=== PATIENT | female | born 1950 | race Caucasian/White ===

== ENCOUNTER 2018-08-20 00:39 | Outpatient (CLI) | payer MEDICARE, OTHER, SELFPAY ==
--- NOTE | 2018-08-20 11:30 | DI.MAMMO_ITS ---
SYMPTOM/DIAGNOSIS: SCREEN MAMMOGRAM: 08/20 Mammograms were interpreted according to the usual protocol including computer analysis with CAD system, tomosynthesis and C view imaging. The breasts are of moderate density with fairly symmetrical distribution of fibroglandular tissue. No dominant mass or clumped microcalcification is identified in either breast. The current examination is compared with previous examinations including Sep 2016 and there has been no gross interval change in appearance in comparison with the previous studies. CONCLUSION: No specific evidence of malignancy at this time. Routine screening examinations are suggested at yearly intervals in this age group according to the ACS/ACR guidelines. Category 1, breast density category B. MQSA ASSESSMENT OF FINDINGS: Negative. Category 1. Patient will receive a letter notifying them of these results. BI-RADS category B. There are scattered areas of fibroglandular density.
== END 2018-08-20 00:59 ==
PROVIDERS: PCP Family Medicine; Visit Provider Family Medicine
DX: Z12.31 Encounter for screening mammogram for malignant neoplasm of breast (principal)
CPT/HCPCS: 77063; 77067

== ENCOUNTER 2018-09-25 03:25 | Outpatient (CLI) | payer MEDICARE, OTHER, SELFPAY ==
[2018-09-25 13:34] LABS: Hemoglobin A1C 5.6 % (4.5-6.2)
[2018-09-25 15:00] LABS: ALT 19 U/L (12-78); AST 17 U/L (15-37); Albumin 3.8 g/dL (3.4-5.0); Alkaline Phosphatase 90 U/L (46-116); Anion Gap 5.9 mmol/L (3-11); BUN 19 mg/dL (7-18); Bilirubin, Total 0.4 mg/dL (0.2-1.0); CO2 31.1 mmol/L (21.0-32.0); CREATININE 1.18 mg/dL (0.55-1.02); Calcium 8.8 mg/dL (8.5-10.1); Chloride 101 mmol/L (98-107); Cholesterol 252 mg/dL (50-200); Estimated GFR 45.28 (mL/min/1.73m2); Glucose 98 mg/dL (70-100); HDL Cholesterol 53 mg/dL (40-60); LDL CHOLESTEROL 186 mg/dL (<100); Potassium 4.3 mmol/L (3.5-5.1); Sodium 138 mmol/L (136-145); Total Protein 6.8 g/dL (6.4-8.2); Triglyceride 147 mg/dL (30-150)
== END 2018-09-25 03:45 ==
PROVIDERS: PCP Family Medicine; Visit Provider Family Medicine
DX: R73.09 Other abnormal glucose (principal); I10 Essential (primary) hypertension; E78.5 Hyperlipidemia, unspecified
CPT/HCPCS: 36415; 80053; 80061; 83721; 83036

== ENCOUNTER 2019-01-21 10:30 | Outpatient (CLI) | payer MEDICARE, OTHER, SELFPAY ==
--- NOTE | 2019-01-21 10:19 | DI.RAD_ITS ---
SYMPTOMS/DIAGNOSIS: RT KNEE PAIN RIGHT KNEE: There are severe degenerative changes of the medial femoral tibial joint. There is sclerosis and mild spurring. There is varius angulation. Spurring is also seen at the tibial spines and femoral intracondylar notch as well as lateral femoral condyle and lateral tibial plateau. Milder degenerative changes are seen involving the patellofemoral joint. There is a question of posterior loose bodies. IMPRESSION: Severe degenerative changes of the medial femoral tibial joint. Question of joint space loose bodies.
== END 2019-01-21 10:50 ==
PROVIDERS: PCP Family Medicine; Referring Provider Family Medicine; Visit Provider Student in an Organized Health Care Education/Training Program
DX: M17.11 Unilateral primary osteoarthritis, right knee; I10 Essential (primary) hypertension; Z96.652 Presence of left artificial knee joint
CPT/HCPCS: 73562; 99214

== ENCOUNTER → 2019-01-24 11:28 | Outpatient (BNVA) | payer MEDICARE, OTHER, SELFPAY | PROVIDERS: PCP Family Medicine; Referring Provider Family Medicine; Visit Provider Orthopaedic Surgery | DX: I10 Essential (primary) hypertension (principal); M17.11 Unilateral primary osteoarthritis, right knee; Z96.652 Presence of left artificial knee joint ==

== ENCOUNTER 2019-01-24 12:38 | Outpatient (CLI) | payer MEDICARE, OTHER, SELFPAY ==
[2019-01-24 13:59] LABS: Abs Immature Grans 0.05 k/cumm (0.0-0.09); Absolute Basophil Count 0.02 k/cumm (0.0-0.2); Absolute Lymphocyte Count 2.29 k/cumm (1.2-3.4); Absolute Neutrophil Count 8.46 k/cumm (1.2-6.7); Basophils % 0.2; Eosinophils % 2.3; HCT 38.3 % (36.0-46.0); HGB 12.1 g/dL (12.0-15.5); Immature Grans % 0.4; Lymphocytes % 19.2; Mean Corp. HGB Concentration 31.6 g/dL (32.0-36.0); Mean Corpuscular Hemoglobin 27.1 pg (27.0-33.0); Mean Corpuscular Volume 85.7 fL (80-95); Mean Platelet Volume 10.4 fL (8.0-11.0); Neutrophils % 70.9; Platelet Count 335 x1000/uL (130-400); RBC 4.47 m/cumm (4.00-5.20); RBC Distribution Width 14.4 % (11.7-14.6); White Blood Cell Count 11.93 k/cumm (4.4-10.8)
[2019-01-24 14:01] LABS: Absolute Eosinophil Count 0.27 k/cumm (0.0-0.7); Absolute Monocyte Count 0.84 k/cumm (0.11-0.7)
== END 2019-01-24 12:58 ==
PROVIDERS: PCP Family Medicine; Visit Provider Orthopaedic Surgery
DX: M25.561 Pain in right knee (principal); M17.11 Unilateral primary osteoarthritis, right knee; Z01.818 Encounter for other preprocedural examination
CPT/HCPCS: 36415; 85025

== ENCOUNTER 2019-01-28 05:56 | Inpatient (IN) | payer MEDICARE, OTHER, SELFPAY ==
[2019-01-28] VITALS (13 sets, daily range): BP systolic 76–124; BP diastolic 51–75; PULSE 63–80; RESP 12–20; TEMP 36.2–36.9; O2SAT 96–98
[2019-01-28] MEDS: Lactated Ringers 1,000 ML 80 ML IV ×2 (07:01→09:59)
[2019-01-28] MEDS: Bupivacaine LIPOSOME/PF 133 MG/10 ML VIAL IJ (07:27)
[2019-01-28] MEDS: Bupivacaine 0.25% Pres-Free 10 ML VIAL (07:27)
[2019-01-28] MEDS: Tranexamic Acid 1,000 MG/10 ML VIAL 1000 MG (09:31)
[2019-01-28] MEDS: Hydrogen Peroxide 3% 480 ML BTL (09:59)
--- NOTE | 2019-01-28 11:04 | DI.RAD_ITS ---
SYMPTOMS/DIAGNOSIS: CHECK TOTAL KNEE COMPONENTS RIGHT KNEE: Two views. Comparison 01/21/19. The patient is now status post right total knee replacement. No evidence of hardware failure is seen. The soft tissues are unremarkable. IMPRESSION: Status post right TKR.
--- NOTE | 2019-01-28 13:56 | IN_ITS ---
Date of service: 01/28/19 Time of Service: 12:54 PT Notes Inpatient Physical Therapy Evaluation Date: 01/28/2019 Referring Doctor: Jus Boyle MD PT Orders: PT CONSULT: Mobilize postop right total knee. Get OOB ambulating in room this afternoon Precautions: Fall. Standard. Patient Profile/Admitting Diagnosis: Patient is a 68-year-old female status post right total knee arthroplasty due to persistent right knee pain from unilateral primary osteoarthritis. PMHX: Shingles (Resolved 10/16/17) Polyp of colon (Chronic) Panic attack (Resolved) Knee pain (Chronic) Increased body mass index (Chronic) Hyperlipidemia (Chronic) Essential hypertension (Chronic) Disorder characterized by back pain (Chronic) Depressive disorder (Chronic) Cervical spondylosis (Chronic 09/19/12) Cataract (Resolved 12/16/14) Surgical History: Colonoscopy - MAC Extraction of cataract (01/15/15) KNEE REPAIR Replacement of total knee joint (12/17/12) Tonsillectomy Social History/Home Situation: Patient lives with and daughter in a 1 floor house with 10-12 steps going down to basement, railing on both sides. Patient states she has 3 entrances to the house with the first and entrance having one big step from garage to the house as the most accessible. Second and third entrance are not accessible due to presence of snow. and daughter provides assistance with laundry and do with mobility performance ensure safety. Patient further reports that she has everything she needs on the main floor of the house. Prior to admission and 1-2 months before pain from arthritis started to limit patient, she only needed supervision for transfers and ambulation she could do some minor meal preparation and cooking but could no longer perform vacuuming and nor could she do laundry. Daughter works during the day and her is home until 1:30 PM at which time he goes to work and goes back around 10 PM. Equipment Owned/DME: Patient has a front wheeled walker, a commode which she uses for nighttime toileting, and a shower seat. Subjective: I cannot feel my right leg, I am not sure what I can do today. I do not feel like having to eat anything. Patient was seen lying in bed right knee in Chaparro dressing covered by right knee immobilizer. Patient is agreeable to a physical therapy consultation. Objective: General Observation: Patient lying down in bed HOB elevated about 30 degrees. IV in the right UE. Tenorio catheter on. Mental Status: Alert and oriented x3 Pain: At the at the outset patient reports 0/10 pain primarily because of post anesthesia effect. Vital Signs: In supine before activity, 97% in room air heart rate 70 bpm and blood pressure 111/60 8 mmHg. ROM: Right Upper Extremity: WFL Left Upper Extremity: WFL Right Lower Extremity: Patient was able to perform gravity-eliminated hip abduction to within normal ranges without report of pain. She is able to perform ankle dorsiflexion and plantar flexion as well as ankle circles without pain to within normal ranges. She is unable to perform SLR on the side at this time. Left Lower Extremity: Hip flexion 0-90. Knee flexion 0-45. Ankle dorsiflexion plantarflexion WFL. Strength: Right Upper Extremity: WFL Left Upper Extremity: WFL Right Lower Extremity: Hip flexors 1/5. Knee flexors extensors not tested. Ankle dorsiflexors/plantar flexors 3/5. Left Lower Extremity: Hip flexors 3-/5. Knee flexors 3-/5. Knee extensors 3+/5. Dorsiflexors plantar flexors 4/5. Sensation: Intact on left LE as to pain and pressure. Right LE unable to test due to postanesthesia effects. Bed Mobility/Transfers: Rolling: Max assist Supine to sit with HOB 45 degrees: Max assist. Patient with oxygen saturation of 96% in room air heart rate 82 bpm and blood pressure minimally going down to 106/70 1 mmHg while sitting at edge of bed. Sit to supine: Max assist Sit to stand: Unable due to decreased sensation on right LE for postanesthesia effects. Stand to sit: Unable due to decreased sensation on right LE for postanesthesia effects. Bed to chair:Unable due to decreased sensation on right LE for postanesthesia effects. Chair to bed: Unable due to decreased sensation on right LE for postanesthesia effects. Gait: Not tested today due to safety reasons of: Patient anxiety as she is not able to feel fully her right LE at time of evaluation and obesity. Balance: Static Sitting: Poor Dynamic Sitting: Poor Static Standing: Unable to test Dynamic Standing: Unable to test Special Tests: Mobility Limitations Standardized Measure [facility] 6 clicks Basic Mobility Inpatient Short Form: Raw Score: 9 CMS Score: 81.38% deficit Informed Consent/Education: Patient instructed in purpose of PT consult and plan of care. Assessment: Patient is a 68 year old female patient referred to physical therapy services with the diagnosis of status post total knee arthroplasty due to unilateral primary osteoarthritis. Patient presents with clinical signs and symptoms consistent with decreased mobility performance related to post- operative status, as demonstrated by the following impairment level findings: 1. Impaired hip and knee range of motion on the right and left side due to pain and weakness 2. Impaired strength on the right LE 3. Absent static and dynamic standing balance 4. Impaired activity tolerance 5. Impaired static dynamic sitting balance Impairments are contributing to the following functional limitations: 1. Decreased bed mobility skills 2. Inability to perform transfer tasks 3. Inability to perform level surface ambulation 4. Increased completion time for bed mobility tasks 5. Increased fall risk Patient is assessed as a Moderate 92453 complexity based on the following: History: 68-year-old obese female with decreased bed mobility skills and inability to perform transfer and ambulation tasks resulting from total knee arthroplasty at POD 0 with past medical and surgical histories as outlined above Examination: Underlying impairments and functional deficits as noted above Presentation: Evolving Decision Makin Moderate complexity Goals: Goals X1 week 1. Supine-Sit independent 2. Sit-Supine independent 3. Sit-Stand independent with FWW 4. Stand-Sit dependent with FWW 5. Bed-Chair independent with FWW 6. Chair-Bed independent with FWW 7. Gait independent with FWW on level surfaces for at least 200 feet 8. Stairs independent while holding onto bilateral rails using step through pattern 9. Independent with home exercise program 10. Balance good Plan of Care/Treatment Plan: 1-2x/day, 7 days/week x 1 week. Plan of care has been reviewed with the SUPERINTENDENT LAUNDRY providing the service under Physical Therapy direction. Initiate Physical Therapy intervention for strengthening, bed mobility, transfers, gait, stairs, balance training, use of assistive device. DISCHARGE RECOMMENDATIONS: To home with and daughter using FWW. May benefit from short-term home health PT services in order to address potential remaining impairments, evaluate home safety, and reduce fall risk. TREATMENT CODE/TIME: 91135, 82205 55 minutes beginning at 12:54 PM. You very much for your referral. Althea Araujo, Pt, DPT, CLT [facility]
[2019-01-28] MEDS: Ketorolac 30 MG/ML VIAL IVP ×2 (14:16→20:12)
[2019-01-28] MEDS: oxyCODONE-CR 10 MG TABCR PO (14:16)
[2019-01-28] MEDS: Docusate Sodium 100 MG CAP PO ×2 (14:17→20:13)
[2019-01-28] MEDS: Acetaminophen 325 MG TAB 650 MG PO (14:51)
[2019-01-28] MEDS: Normal Saline 1,000 ML 125 ML IV ×2 (15:05→22:26)
[2019-01-28] MEDS: Tranexamic Acid 650 MG TAB 1300 MG PO (16:10)
[2019-01-28] MEDS: HYDROcodone 5/Acetaminophen 325 TAB PO ×2 (16:13→22:26)
[2019-01-28] MEDS: Atorvastatin 40 MG TAB PO (20:12)
[2019-01-28] MEDS: Normal Saline Flush 10 ML SYR IV (20:15)
[2019-01-28] MEDS: Aspirin E.C. 81 MG TABEC PO (22:26)
[2019-01-29] VITALS (7 sets, daily range): BP systolic 90–127; BP diastolic 42–74; PULSE 68–74; RESP 17–20; TEMP 36.1–36.7; O2SAT 96–97
[2019-01-29] MEDS: oxyCODONE-CR 10 MG TABCR PO ×2 (02:29→13:41)
[2019-01-29] MEDS: Normal Saline Flush 10 ML SYR (02:30)
[2019-01-29] MEDS: Ketorolac 30 MG/ML VIAL IVP ×4 (02:30→20:14)
[2019-01-29 07:09] LABS: HCT 27.3 % (36.0-46.0); HGB 8.5 g/dL (12.0-15.5); Mean Corp. HGB Concentration 31.1 g/dL (32.0-36.0); Mean Corpuscular Hemoglobin 27.1 pg (27.0-33.0); Mean Corpuscular Volume 86.9 fL (80-95); Mean Platelet Volume 10.2 fL (8.0-11.0); Platelet Count 284 x1000/uL (130-400); RBC 3.14 m/cumm (4.00-5.20); RBC Distribution Width 14.4 % (11.7-14.6); White Blood Cell Count 17.58 k/cumm (4.4-10.8)
--- NOTE | 2019-01-29 08:18 | PT.INTREAT ---
Date of service: 01/29/19 Time of Service: 08:18 PT Notes Inpatient Physical Therapy Treatment Note [facility] Date: 01/29/19 PRECAUTIONS: Fall, WBAT R SUBJECTIVE: Nichelle reports that she is feeling better than she was yesterday. She states that she is very nervous about standing because she does not want to fall. OBJECTIVE: PAIN: Patient c/o significant R LE pain with weight bearing and ther ex BED MOBILITY/TRANSFERS Supine-sit: SBA with HOB at 50 degrees Sit-supine: Min A with HOB flat Sit-stand: CGA in a.m.; Mod A in p.m. Stand-sit: CGA Bed-Chair: CGA Chair-bed: CGA GAIT Assistive Device: Bariatric FWW Weight bearing: WBAT R Assist: CGA Distance: 5' in a.m.; 15' in p.m. Deviation: Patient c/o pain and nausea Static standing x1 minute in both a.m. and p.m. THEREX: Patient completed a LE strengthening and stabilization program, as per flow sheet. She requires assist with SLR. ASSESSMENT: Patient appeared limited due to significant pain, which caused patient to feel nauseous. Patient was able to perform gait training with FWW support and CGA, although she was not able to tolerate more than 5' from [id number]-arycl and 15' in p.m.. She would benefit from continued gait and transfer training as well as strengthening for improved activity tolerance and mobility. PLAN: Continue with PT's POC TREATMENT CODE/TIME: Session 1: 25 minutes; 25128, 82903 Session 2: 30 minutes; 16001, [id number]
[2019-01-29] MEDS: Enoxaparin 40 MG/0.4 ML SYR SC (09:46)
[2019-01-29] MEDS: Docusate Sodium 100 MG CAP PO ×3 (09:46→20:15)
[2019-01-29] MEDS: Hydrochlorothiazide 25 MG TAB PO (09:46)
[2019-01-29] MEDS: Losartan 50 MG TAB 100 MG PO (09:47)
[2019-01-29] MEDS: Metoprolol CR 100 MG TABCR PO (09:47)
[2019-01-29] MEDS: Pantoprazole 40 MG TABCR PO (09:47)
[2019-01-29] MEDS: Multivitamin w/Minerals TAB 1 TAB PO (09:47)
--- NOTE | 2019-01-29 10:39 | CHAPLAIN ---
Nichelle is a former [employer] employee. She had knee surgery yesterday and hopes to have a full recovery in time to dance at her son's wedding in May. Nichelle had three family members with her when I visited and seems to be well supported.
[2019-01-29] MEDS: Acetaminophen 325 MG TAB 650 MG PO ×2 (12:51→20:15)
--- NOTE | 2019-01-29 14:37 | INITIAL_ITS ---
- If Service Date Differs Date of service: 01/29/19 Time of Service: 14:07 Care Management Initial Assess REASON FOR HOSPITALIZATION:: OA (R) Knee PAST MEDICAL HISTORY/PAST SURGICAL HISTORY:: Shingles (Resolved 10/16/17). Polyp of colon (Chronic). Panic attack (Resolved). Knee pain (Chronic). Increased body mass index (Chronic). Hyperlipidemia (Chronic). Essential hypertension (Chronic). Disorder characterized by back pain (Chronic). Depressive disorder (Chronic). Cervical spondylosis (Chronic 09/19/12). Cataract (Resolved 12/16/14). Colonoscopy - MAC. Extraction of cataract (01/15/15). KNEE REPAIR. Replacement of total knee joint (12/17/12). Tonsillectomy PREVIOUS FUNCTIONAL STATUS/SOCIAL/FAMILY SUPPORTS:: Nichelle resides with her Higinio in [facility]. At baseline Nichelle is independent, and manages ADL's CURRENT FUNCTIONAL STATUS:: Nichelle is sitting up in bed today, pleasant and receptive to discussion. ADVANCE DIRECTIVES:: On file - Roman Barnes Has patient been provided with information about the portal?: Yes Did the patient sign up for the portal?: No CODE STATUS:: Full Code INSURANCE COVERAGE / FINANCIAL ISSUES:: [facility], [place] life ins CURRENT HOME/COMMUNITY SERVICES/EQUIPMENT:: Currently Nichelle has no services. She has a FWW, shower seat, and commode PRIMARY CARE PHYSICIAN:: Dr. sutton POTENTIAL DISCHARGE NEEDS:: F/U appointment with Dr. Boyle PATIENT/FAMILY EDUCATION NEEDS:: Review DC instructions, any limitations, and ongoing DC planning discussion. Discuss 'Ask Me three' ANTICIPATED BARRIERS TO DISCHARGE:: None identified at this time. TRANSPORTATION:: Via private vehicle with family PLAN:: Nichelle will return home with no anticipated services. She will f/U with Dr. Boyle and plan of care as prescribed. Nichelle's family to transport when ready.
--- NOTE | 2019-01-29 15:23 | W.PM.PROGNOT ---
Date of Service Date of service: 01/29/19 Time of Service: 15:23 Assessment and Plan (1) Status post total right knee replacement: Current visit: Yes Status: Acute Assessment: Stable postop day #1 right total knee replacement. She is a little behind because she could not get up out of bed yesterday because her spinal had not worn off. Plan: GLENN Tenorio. Mobilize per protocol with PT. Recheck hemoglobin tomorrow. Home when fully independent and taking only p.o. pain meds. Subjective Interval history since last seen: Her spinal has worn off, but so far her pain is well controlled by her multimodal pain regimen. She was unable to get up last night because the spinal had not worn off. She has been able to get up and walk to the chair today. Exam Narrative Exam Narrative: She is afebrile vital signs are stable. Hgb is 8.5 g today. I & O's are good. She is moving her right toes well actively. She has good sensation and circulation toes of her right foot. Objective Objective Clinical Data: Abnormal lab results 01/29/19 Range/Units 06:35 WBC 17.58 H (4.4-10.8) k/cumm RBC 3.14 L (4.00-5.20) m/cumm Hgb 8.5 L (12.0-15.5) g/dL Hct 27.3 L (36.0-46.0) % MCHC 31.1 L (32.0-36.0) g/dL Vital Signs Temperature 36.6 C 01/29/19 11:36 Temperature Source Temporal Artery Scan 01/29/19 11:36 Pulse 74 01/29/19 11:36 Pulse Rhythm Regular 01/29/19 11:15 Respiratory Rate 18 01/29/19 11:36 Respiratory Effort 01/29/19 11:15 Respiratory Depth Normal 01/29/19 11:15 Respiratory Pattern Normal 01/29/19 11:15 Blood Pressure 110/52 L 01/29/19 11:36 Pulse Oximetry 96 01/29/19 11:36 Respiratory End-tidal CO2 34 01/28/19 11:35 Oxygen Delivery Method Room Air 01/29/19 11:36 Oxygen Flow Rate 0 01/29/19 11:36 Pain Level 2 01/29/19 13:41 Intake & Output 01/28/19 01/29/19 01/29/19 23:59 11:59 23:59 Intake Total 1763.75 / 3303.75 1620 / 1860 240 / 1860 Output Total 350 / 350 Balance 1763.75 / 2853.75 1270 / 1510 240 / 1510 Intake: IV 1733.75 / 3153.75 1120 / 1120 Oral 30 / 150 500 / 740 240 / 740 Output: Urine 350 / 350 Other: Urine Color Yellow Urine Appearance Clear Clear Emesis Description None Laboratory Results WBC 17.58 k/cumm (4.4-10.8) H 01/29/19 06:35 RBC 3.14 m/cumm (4.00-5.20) L 01/29/19 06:35 Hgb 8.5 g/dL (12.0-15.5) L 01/29/19 06:35 Hct 27.3 % (36.0-46.0) L 01/29/19 06:35 MCV 86.9 fL (80-95) 01/29/19 06:35 MCH 27.1 pg (27.0-33.0) 01/29/19 06:35 MCHC 31.1 g/dL (32.0-36.0) L 01/29/19 06:35 RDW 14.4 % (11.7-14.6) 01/29/19 06:35 Plt Count 284 x1000/uL (130-400) 01/29/19 06:35 MPV 10.2 fL (8.0-11.0) 01/29/19 06:35 Patient ABO/Rh Cancelled 01/28/19 06:55 Antibody Screen Cancelled 01/28/19 06:55
[2019-01-29] MEDS: Normal Saline 1,000 ML 60 ML IV (16:51)
--- NOTE | 2019-01-29 18:22 | ROE_ITS ---
DATE OF PROCEDURE: January 28, 2019 PREOPERATIVE DIAGNOSIS: Osteoarthritis, right knee. POSTOPERATIVE DIAGNOSIS: Osteoarthritis, right knee. PROCEDURE: Right total knee arthroplasty. COMPONENTS USED: A size 2.5 posterior cruciate substituting femoral component, a size 2.5 tibial tra y, a 15-mm size 2.5 posterior cruciate stabilized polyethylene insert, and a 32-mm triprong patella. All components were cemented. SURGEON: Jus Boyle M.D. ASSISTANTS: Sara Marks PA-C, and Jacinto Bosch PA-C ANESTHESIA: Spinal, Rhett Arita CRNA ESTIMATED BLOOD LOSS: 300 cc INDICATIONS: This is a 68-year-old white female with disabling right knee pain due to osteoarthritis . This pain has progressed significantly over the last two years. She has difficulty with the activ ities of daily living because of her pain. She has previously undergone a successful left total knee replacement in 2013 by [place]. This knee is functioning well with good pain relief. She wishes to unde rgo a right total knee replacement at this time. The risks and complications of the procedure were e xplained to the patient in detail preoperatively. PROCEDURE: The patient was taken to the Operating Room on 01/28/19. A femoral nerve block was admini stered, followed by spinal anesthetic. The patient was then placed supine on the operating table. A roll was placed under her right buttock. A proximal tourniquet was applied and the right lower extr emity was prepped from toes to tourniquet in draped free in the usual sterile fashion. An anterior m idline incision was made beginning just distal to the tibial tubercle and extending approximately 5 t o 6 inches proximal to the patella. The longer incision was necessary because of her obesity. The i ncision was carried down until the patella was encountered and then the patella was used as a landmar k to incise the fascia in the thigh to expose the quadriceps tendon. A medial parapatellar capsular incision was then made. It was extended proximally and longitudinally in line with the quad tendon. Throughout the procedure, due to her obesity and difficulty in obtaining in good tourniquet pressure , there was a fair amount of continuous oozing. Medial and lateral meniscectomies were performed. A nterior and posterior cruciate ligaments were sacrificed. The patella was everted. The knee was hyperflexed. The distal femur was resected using intramedulla ry alignment guides and jigs. The patient was found to require a size 2.5 femoral component, posteri or cruciate substituting. The proximal tibia was then resected using extramedullary alignment guides and jigs. The resection was indexed off the medial tibial plateau which was the site of most wear. Two millimeters were resected from the most deficient plateau. The patient was found to require a s ize 2.5 tibial component. The keel and stem of the tibia were then punched out in proper rotational alignment. Finally, the patella was resected using the patellar resection guide. Sixteen millimeter s' thickness of patella was left for implantation. Using the drill guide for the triprong patella, t he holes for the three prongs were then reamed out in proper rotational alignment. The proximal tibia was prepared for cementing using pulsed irrigation lavage with saline solution and drying with peroxide-soaked strip sponges. One batch of gentamicin-impregnated methylmethacrylate w as vacuum mixed and hand packed onto the proximal tibia. The tibial component was inserted and impac jose ramon into place with the impactor and mallet. Excess cement was trimmed from the margins of the tibia l tray with the plastic cement removal tool. The tibial component was pressurized using the trial co mponents and extending the knee. Once the first batch of methylmethacrylate had cured, the trial com ponents were removed and then the distal femur and patella were prepared for cementing with pulsed ir rigation lavage with saline solution and drying with peroxide-soaked strip sponges. Another batch of gentamicin-impregnated methylmethacrylate was vacuum mixed and hand packed onto the distal femur and patella. The femoral component was impacted into place, pressurized using the trial insert and exte nding the knee. The patellar component was inserted and pressurized using a patellar clamp. Excess cement was trimmed from the margins of the patella and femoral components using the plastic cement re moval tool while the cement was still soft. When the second batch of methylmethacrylate had hardened , the patellar clamp was removed and the trial insert was removed. The posterior recesses were check ed and any residual cement debris was removed. Any excess cement that covered the femoral component was removed with an osteotome and mallet. The knee was irrigated a final time with pulsed irrigation lavage. A trial reduction was performed and it was found that best stability while still allowing full extens ion was obtained with a 15-mm insert. The 15-mm size 2.5 posterior cruciate substituting component w as placed on the tibial tray and then reduced onto the femoral condyles. Patellar tracking using the rule of no thumb showed the patellar tendon to track laterally; therefore, the lateral retinaculum w as released using a pie-crusting technique. Two grams of tranexamic acid in 150 cc of saline solutio n was then instilled into the knee and allowed to stay for a minute to help promote further hemostasi s. All obvious bleeders were cauterized. The wound margins were infiltrated with 0.5% Marcaine with epinephrine solution. The knee was flexed over soft goods and closure was begun. The medial parapatellar capsular incision was approximated with interrupted [id number] sutures o f #1 Vicryl suture material. The quadriceps tendon insertion was repaired with interrupted figure-of -eight sutures of #1 Vicryl suture material. The subcu was approximated with interrupted #2-0 Vicryl sutures. The skin was approximated using tension-relieving sutures of the near-far far-near techniq ue. Interrupted #3-0 nylon sutures were used for this. The wound was dressed with Xeroform gauze, s terile gauze 4x4s, ABD pads, and wrapped with a Kerlix bandage. The tourniquet was released. A long leg Chaparro compressive dressing was applied and a knee immobilizer splint was placed over the Chaparro c ompressive dressing to maintain the knee in extension. The patient received 1 gram of tranexamic aci d IV prior to tourniquet inflation and another gram of IV tranexamic acid after tourniquet deflation. The patient tolerated the procedure well. Estimated blood loss was 300 cc. The patient was discharged to the Recovery Room in good condition.
[2019-01-29] MEDS: Atorvastatin 40 MG TAB PO (20:15)
[2019-01-29] MEDS: Aspirin E.C. 81 MG TABEC PO (20:16)
[2019-01-30] VITALS (7 sets, daily range): BP systolic 96–141; BP diastolic 62–82; PULSE 73–82; RESP 16–22; TEMP 36.7–38.3; O2SAT 95–98
[2019-01-30] MEDS: Ketorolac 30 MG/ML VIAL IVP (01:29)
[2019-01-30] MEDS: oxyCODONE-CR 10 MG TABCR PO ×2 (01:30→15:11)
[2019-01-30 07:13] LABS: HCT 24.2 % (36.0-46.0); HGB 7.4 g/dL (12.0-15.5); Mean Corp. HGB Concentration 30.6 g/dL (32.0-36.0); Mean Corpuscular Hemoglobin 26.7 pg (27.0-33.0); Mean Corpuscular Volume 87.4 fL (80-95); Mean Platelet Volume 10.5 fL (8.0-11.0); Platelet Count 232 x1000/uL (130-400); RBC 2.77 m/cumm (4.00-5.20); RBC Distribution Width 14.4 % (11.7-14.6)
--- NOTE | 2019-01-30 08:47 | PDOC.CMPRO ---
- If Service Date Differs Date of service: 01/30/19 Time of Service: 08:47 Care Management Progress Note S/O: Nichelle is sitting up in her chair eating breakfast when this advertising copywriter visits, she is pleasant and receptive to discussion. Nichelle reports that she is feeling well this morning. CM discussed DC plans with Nichelle, she reports that she would like home health PT services, prior to outpatient PT at time of DC. CM notified Dr. Boyle's office of the above. A: 68 y/o female admitted 01/28/19 for OA (R) Knee P: Nichelle will return home with home health PT at time of DC. She will F/U with Dr. Boyle and plan of care as prescribed. Nichelle's to transport when ready. She has all necessary DME
--- NOTE | 2019-01-30 08:51 | CMPROGNOTE_ITS ---
- If Service Date Differs Date of service: 01/30/19 Time of Service: 08:47 Care Management Progress Note S/O: Nichelle is sitting up in her chair eating breakfast when this pattern chart writer visits, she is pleasant and receptive to discussion. Nichelle reports that she is feeling well this morning. CM discussed DC plans with Nichelle, she reports that she would like home health PT services, prior to outpatient PT at time of DC. CM notified Dr. Boyle's office of the above. A: 68 y/o female admitted 01/28/19 for OA (R) Knee P: Nichelle will return home with home health PT at time of DC. She will F/U with Dr. Boyle and plan of care as prescribed. Nichelle's to transport when ready. She has all necessary DME
[2019-01-30] MEDS: Enoxaparin 40 MG/0.4 ML SYR SC (10:27)
[2019-01-30] MEDS: Ondansetron O.D.T. 4 MG TABEF PO (10:51)
--- NOTE | 2019-01-30 10:56 | PT.INTREAT ---
Date of service: 01/30/19 Time of Service: 10:56 PT Notes 01/30/19 SUBJECTIVE: Nichelle stating she is very nauseous today even worse than yesterday. She does not complain of pain in her knee throughout treatment this AM. OBJECTIVE: Pt seated in her recliner. She has not eaten very much breakfast due to nausea. She is in agreement to try physical therapy. TRANSFERS Sit to stand: Mod A Stand to sit: CGA Sit to supine: Min A GAIT Device: FWW Weight bearing: WBAT R Assist: CGA Distance: 5' THEREX: Pt performs light muscle setting, AA SLR x 10. Pt also static stands 2x for 1 minute each. See flow sheet. ASSESSMENT: Nausea limiting her PT this morning. I did check back in with pt later in the AM and she was not feeling good and would like me to come back in the PM. She was given anti-nausea medication. PLAN: Continue to mobilize per pt tolerance progressing towards established goals. Direct time: 20 minutes([id number]) Abigail Lr, TANIYA
[2019-01-30] MEDS: Pantoprazole 40 MG TABCR PO (11:54)
[2019-01-30] MEDS: Mylanta Suspension 30 ML CUP PO (11:54)
[2019-01-30] MEDS: Acetaminophen 325 MG TAB 650 MG PO ×2 (11:54→20:46)
[2019-01-30] MEDS: Scopolamine 1 MG/3 DAYS PATCH TD (12:39)
[2019-01-30] MEDS: Losartan 50 MG TAB 100 MG PO (12:40)
[2019-01-30] MEDS: Metoprolol CR 100 MG TABCR PO (12:40)
[2019-01-30] MEDS: Hydrochlorothiazide 25 MG TAB PO (12:40)
--- NOTE | 2019-01-30 15:04 | PT.INTREAT ---
Date of service: 01/30/19 Time of Service: 15:04 PT Notes 01/30/19 SUBJECTIVE: Pt is supine in bed. She notes that her nausea seems okay right now but she doesn't know how it will be when she moves. She states she needs to use the commode. OBJECTIVE: Chaparro dressing removed. Minor drainage noted. Reapply sterile 4x4 gauze to the length of the incision. TRANSFERS Supine to sit: SBA with HOB elevated Sit to supine: Min A Sit to stand: Mod A Stand to sit: CGA GAIT Device: FWW Weight bearing: WBAT R Assist: Min A Distance: 5'x2, 3'x1 Deviation: Forward flexed on walker, cueing for walker management, pt feels like her leg is giving out on her Therex: Pt performs SLR x 5 reps with AA motion. ASSESSMENT: Pt becomes very nauseated upon movement and complains of significant pain in the right knee. She has one instance where her knee feels like it is going to buckle on her although no LOB. I would recommend utilizing her immobilizer until she becomes stronger with gait. Her symptoms of nausea, pain and anxiety are limiting her ability to participate in PT intervention. PLAN: Continue to progress gait and strength as she tolerates per POC. Session # 2: 1:50-2:20([id number]) Abigail Lr PTA
[2019-01-30] MEDS: Docusate Sodium 100 MG CAP PO ×2 (15:12→20:47)
--- NOTE | 2019-01-30 15:59 | W.PM.PROGNOT ---
Date of Service Date of service: 01/30/19 Time of Service: 15:59 Assessment and Plan (1) Status post total right knee replacement: Current visit: Yes Status: Acute Assessment: Progressing slower than usual at 48 hours postop right total knee replacement. Some of this is from her postop nausea and some of this is from her morbid obesity. Now that the nausea has been controlled I think she will do better. Plan: Apply a Cryo/Cuff to the right knee 4 times a day for an hour each time. Now that the Toradol has run out we will place her on Celebrex 200mg p.o. twice daily. We will continue to mobilize her per protocol for total knee replacement. Subjective Interval history since last seen: Karen was troubled with a lot of nausea today. The Zofran I gave her did not help. The scopolamine patch however has relieved her nausea. Despite the nausea she was able to get up and walk with physical therapy today. Her right knee pain is well controlled. Exam Narrative Exam Narrative: Right knee incision is clean and dry. No erythema. She remains afebrile. Blood pressure 102/65. Pulse 79 regular. She is not having any symptoms of anemia. Neurovascular examination right foot is completely normal. She has no swelling around her ankle. Hemoglobin today was 7.4 g. She still needing moderate assist to transfer. Objective Objective Clinical Data: Abnormal lab results 01/30/19 Range/Units 06:50 WBC 12.20 H D (4.4-10.8) k/cumm RBC 2.77 L (4.00-5.20) m/cumm Hgb 7.4 L (12.0-15.5) g/dL Hct 24.2 L (36.0-46.0) % MCH 26.7 L (27.0-33.0) pg MCHC 30.6 L (32.0-36.0) g/dL Vital Signs Temperature 37.4 C 01/30/19 12:05 Temperature Source Tympanic 01/30/19 12:05 Pulse 79 01/30/19 12:05 Pulse Rhythm Regular 01/30/19 07:20 Respiratory Rate 18 01/30/19 12:05 Respiratory Effort Non-Labored 01/30/19 07:20 Respiratory Depth Normal 01/30/19 07:20 Respiratory Pattern Normal 01/30/19 07:20 Blood Pressure 102/65 01/30/19 12:05 Pulse Oximetry 98 01/30/19 12:05 Respiratory End-tidal CO2 34 01/28/19 11:35 Oxygen Delivery Method Room Air 01/30/19 12:05 Oxygen Flow Rate 0 01/30/19 12:05 Pain Level 3 01/30/19 01:30 Intake & Output 01/29/19 01/30/19 01/30/19 23:59 11:59 23:59 Intake Total 590 / 2210 390 / 750 360 / 750 Output Total 500 / 1050 800 / 800 Balance 90 / 1160 -410 / -50 360 / -50 Intake: IV 110 / 1230 Oral 480 / 980 390 / 750 360 / 750 Output: Urine 500 / 1050 800 / 800 Other: Urine Color Yellow Light Jessica Urine Appearance Clear Clear Urine Odor None Comment uop x 1 to bedside commode Emesis Description None Voiding Methods Bedside Commode Toilet Laboratory Results WBC 12.20 k/cumm (4.4-10.8) H D 01/30/19 06:50 RBC 2.77 m/cumm (4.00-5.20) L 01/30/19 06:50 Hgb 7.4 g/dL (12.0-15.5) L 01/30/19 06:50 Hct 24.2 % (36.0-46.0) L 01/30/19 06:50 MCV 87.4 fL (80-95) 01/30/19 06:50 MCH 26.7 pg (27.0-33.0) L 01/30/19 06:50 MCHC 30.6 g/dL (32.0-36.0) L 01/30/19 06:50 RDW 14.4 % (11.7-14.6) 01/30/19 06:50 Plt Count 232 x1000/uL (130-400) 01/30/19 06:50 MPV 10.5 fL (8.0-11.0) 01/30/19 06:50 Patient ABO/Rh Cancelled 01/28/19 06:55 Antibody Screen Cancelled 01/28/19 06:55
--- NOTE | 2019-01-30 16:37 | PHARADMIT ---
Addendum entered by Nathan Real III 01/31/19 09:03: Pharmacy Note Subjective MD notes that patient has progressed slowly due to nausea & morbid obesity. Nausea under control now. Objective VS-OK pain;01/27 No Labs No BM yet (meds given) Assessment Tordol complete, strat Celebrex, Zofran & Scolopamine patch helped nausea. Plan Continue PT, hoping for improvement with nausea controlled Original Note: Admission Pharmacy Clinical Review OA (R) knee Code Status Full Code Current Weight 134.8 kg Renally Cleared and Narrow Therapeutic Index Meds Crcl ~60.7 mL/min using adjusted body weight QTc Value / Action Taken n/a BP Control, Fever Bp 102/65 afebrile Electrolytes reviewed n/a DVT Prophylaxis enoxaparin Opiate Usage / Scheduled Bowel Regimen Ordered scheduled and prn/docusate scheduled Plt/SCr for Heparin / Enoxaparin plt 232 SCr 1.18 (from 11/180 INR for Warfarin n/a H/H stable, WBC/Bands h/h-7.4/24.2 wbc 12.20 Antibiotic appropriateness none Cultures and Sensitivities none Surgical ABX d/c within 24 hr yes DM control / Insulin Dosing [id number] none Heart Failure (Check EF%) (WEI's, B-Block, Diuretics) HCTZ, losartan, metoprolol IV to PO Switch n/a Home Meds Reviewed -separate admin of calcium carbonate and multivitamin -citalopram may enhance the antiplatelet effect of ibuprofen -ibuprofen may enhance the bleeding risk and diminish the cardioprotective effects of aspirin Home Meds Not Ordered shingrix, citalopram, ibuprofen, nystatin, varicella zoster Comments progressing slower than usual per progress note
[2019-01-30] MEDS: Atorvastatin 40 MG TAB PO (20:47)
[2019-01-30] MEDS: Celecoxib 200 MG CAP PO (20:47)
[2019-01-30] MEDS: Aspirin E.C. 81 MG TABEC PO (21:55)
[2019-01-30] MEDS: HYDROcodone 5/Acetaminophen 325 TAB PO (22:22)
--- NOTE | 2019-01-30 23:00 | NUR.NOTE ---
Assisted patient to the commode just now post opsite below the knee noticed to be bleeding, gentle compress applied mepilex applied, the nursing travel information center supervisor is aware of same
[2019-01-31] VITALS (8 sets, daily range): BP systolic 98–115; BP diastolic 50–64; PULSE 70–81; RESP 18–20; TEMP 36.1–37.4; O2SAT 96–98
[2019-01-31] MEDS: oxyCODONE-CR 10 MG TABCR PO ×2 (01:44→14:00)
[2019-01-31] MEDS: Losartan 50 MG TAB 100 MG PO (08:25)
[2019-01-31] MEDS: Pantoprazole 40 MG TABCR PO (08:25)
[2019-01-31] MEDS: Hydrochlorothiazide 25 MG TAB PO (08:25)
[2019-01-31] MEDS: Metoprolol CR 100 MG TABCR PO (08:25)
[2019-01-31] MEDS: Celecoxib 200 MG CAP PO ×2 (08:25→20:06)
--- NOTE | 2019-01-31 11:39 | CHAPLAIN ---
Nichelle was in bed when I visited. She said she had a terrible day yesterday, with a fever and was nauseated. She said she is not sure if the symptoms are related to her surgery or not. She asked family members not to visit. Today, she is feeling much better. She said she plans to have PT at home when she is discharged and then get out to PT. Her goal is to be dancing at her sons wedding in May. Nichelle is a former [employer] employee in [employer] [facility] [employer]. She retired two years ago.
[2019-01-31 12:44] LABS: HCT 24.9 % (36.0-46.0); HGB 7.7 g/dL (12.0-15.5)
--- NOTE | 2019-01-31 13:17 | PT.INTREAT ---
Date of service: 01/31/19 Time of Service: 13:17 PT Notes Patient Location: Med Surg Referring Provider: Dr. Boyle Date of Service: 01/31/19 SUBJECTIVE: Nichelle stating she is feeling much better today. She was able to eat her normal meals for lunch and breakfast. Her pain seems to be better managed. OBJECTIVE: Pt seen for two sessions of PT. Treatment noted below. TRANSFERS Sit to supine: Min A for LE's Sit to stand: Mod A in AM, Min A in PM Stand to sit: CGA GAIT Device: FWW Weight bearing: WBAT R Assist: CGA Distance: AM: 15'x2, PM 15'x2 Deviation: Forward flexed on walker, Immobilize donned in PM session. THEREX: Light LE strengthening and gentle ROM activities performed. See flow sheet. OTHER: Incisional drainage noted with multiple dressing changes per nursing. Avoided excessive ROM due to this. Cryo applied to knee both in AM and PM. ASSESSMENT: Improvements in comfort today which enabled pt to walk greater distance with her FWW. She continues to requires assist from out of chair and into her bed with slow improvements noted today. Pt will benefit from continued physical therapy for improvements in her gait and transfer training. PLAN: Continue to progress per established goals. Session #1: 9:00-9:25([id number], [id number]) Session #2 1:00-1:20([id number]) Abigail Lr PTA
--- NOTE | 2019-01-31 13:43 | PDOC.CMPRO ---
- If Service Date Differs Date of service: 01/31/19 Time of Service: 13:43 Care Management Progress Note S/O: Nichelle is sitting up in bed when this screen writer visits this morning, she is pleasant and receptive to discussion. Nichelle continues to report that she would like home health services at time of DC, which Dr. Boyle's office has been notified of. No change in DC plan. A: 68 y/o female admitted 01/28/19 for OA (R) Knee P: Nichelle will return home with home health PT at time of DC. She will F/U with Dr. Boyle and plan of care as prescribed. Nichelle's to transport when ready. She has all necessary DME
[2019-01-31] MEDS: Docusate Sodium 100 MG CAP PO ×2 (14:00→20:06)
--- NOTE | 2019-01-31 14:11 | CMPROGNOTE_ITS ---
- If Service Date Differs Date of service: 01/31/19 Time of Service: 13:43 Care Management Progress Note S/O: Nichelle is sitting up in bed when this race and sports book writer visits this morning, she is pleasant and receptive to discussion. Nichelle continues to report that she would like home health services at time of DC, which Dr. Boyle's office has been notified of. No change in DC plan. A: 68 y/o female admitted 01/28/19 for OA (R) Knee P: Nichelle will return home with home health PT at time of DC. She will F/U with Dr. Boyle and plan of care as prescribed. Nichelle's to transport when ready. She has all necessary DME
[2019-01-31] MEDS: Tranexamic Acid 650 MG TAB 1300 MG PO (17:44)
--- NOTE | 2019-01-31 17:58 | W.PM.PROGNOT ---
Date of Service Date of service: 01/31/19 Time of Service: 17:58 Assessment and Plan (1) Status post total right knee replacement: Current visit: Yes Status: Acute Assessment: Great improvement today in terms of her mobility. I think this coincides with the fact that her nausea is resolved and her pain is under better control. She is getting a lot of oozing from her incision. She had a lot of oozing during the procedure as well. I think she can do without Lovenox at this time. I think if she we can get the bleeding under control and she has no setbacks overnight she could probably go home tomorrow. Plan: Give her some oral tranexamic acid, 1300 mg p.o. now. DC Lovenox. Change/reinforced dressings as needed. Continue to mobilize with PT. Barring any setbacks, will probably go home tomorrow. Subjective Patient reports: feels better Interval history since last seen: She feels dramatically better today. Nausea is gone. She does not feel lightheaded or dizzy. She was able to move much better. She has been able urinate since the Ten[place] is out. She has had a lot of bleeding through the dressings however. Exam Narrative Exam Narrative: She has had some bleeding through her dressings that has saturated the dressing. This just began this afternoon. The dressings been changed and it is not soaking through now when I see her. She does not have any unusual swelling in her right foot and ankle. Hemoglobin was 7.7 g today. She was able to walk 15 feet x2 with the therapist. She still requires some help to get out of chair and out of bed. Objective Objective Clinical Data: Abnormal lab results 01/31/19 Range/Units 12:30 Hgb 7.7 L (12.0-15.5) g/dL Hct 24.9 L (36.0-46.0) % Vital Signs Temperature 37.4 C 01/31/19 15:54 Temperature Source Tympanic 01/31/19 15:54 Pulse 74 01/31/19 15:54 Pulse Rhythm Regular 01/31/19 15:30 Respiratory Rate 18 01/31/19 15:54 Respiratory Effort Non-Labored 01/31/19 15:30 Respiratory Depth Normal 01/31/19 15:30 Respiratory Pattern Normal 01/31/19 15:30 Blood Pressure 105/64 01/31/19 15:54 Pulse Oximetry 96 01/31/19 15:54 Respiratory End-tidal CO2 34 01/28/19 11:35 Oxygen Delivery Method Room Air 01/31/19 15:54 Oxygen Flow Rate 0 01/31/19 15:54 Pain Level 3 01/30/19 01:30 Intake & Output 01/30/19 01/31/19 01/31/19 23:59 11:59 23:59 Intake Total 600 / 990 350 / 350 Output Total 500 / 1300 350 / 650 300 / 650 Balance 100 / -310 0 / -300 -300 / -300 Intake: Oral 600 / 990 350 / 350 Output: Urine 500 / 1300 350 / 650 300 / 650 Other: Urine Color Yellow Yellow Light Jessica Urine Appearance Clear Cloudy Clear Urine Odor Normal Strong None Emesis Description None None Voiding Methods Bedside Commode Bedside Commode Bedside Commode Laboratory Results WBC 12.20 k/cumm (4.4-10.8) H D 01/30/19 06:50 RBC 2.77 m/cumm (4.00-5.20) L 01/30/19 06:50 Hgb 7.7 g/dL (12.0-15.5) L 01/31/19 12:30 Hct 24.9 % (36.0-46.0) L 01/31/19 12:30 MCV 87.4 fL (80-95) 01/30/19 06:50 MCH 26.7 pg (27.0-33.0) L 01/30/19 06:50 MCHC 30.6 g/dL (32.0-36.0) L 01/30/19 06:50 RDW 14.4 % (11.7-14.6) 01/30/19 06:50 Plt Count 232 x1000/uL (130-400) 01/30/19 06:50 MPV 10.5 fL (8.0-11.0) 01/30/19 06:50 Patient ABO/Rh Cancelled 01/28/19 06:55 Antibody Screen Cancelled 01/28/19 06:55
[2019-01-31] MEDS: Atorvastatin 40 MG TAB PO (20:05)
[2019-01-31] MEDS: Aspirin E.C. 81 MG TABEC PO (21:07)
[2019-02-01] MEDS: oxyCODONE-CR 10 MG TABCR PO (01:27)
[2019-02-01 03:55] VITALS: BP 107/62; PULSE 78; RESP 20; TEMP 37.4; O2SAT 97
[2019-02-01 08:30] VITALS: BP 127/77; PULSE 70; RESP 20; TEMP 36.5; O2SAT 97
[2019-02-01] MEDS: Multivitamin w/Minerals TAB 1 TAB PO (08:31)
[2019-02-01] MEDS: Metoprolol CR 100 MG TABCR PO (08:31)
[2019-02-01] MEDS: Hydrochlorothiazide 25 MG TAB PO (08:31)
[2019-02-01] MEDS: Docusate Sodium 100 MG CAP PO (08:31)
[2019-02-01] MEDS: Celecoxib 200 MG CAP PO (08:31)
[2019-02-01] MEDS: Losartan 50 MG TAB 100 MG PO (08:32)
[2019-02-01] MEDS: Pantoprazole 40 MG TABCR PO (08:32)
[2019-02-01] MEDS: HYDROcodone 5/Acetaminophen 325 TAB PO (09:33)
[2019-02-01 09:53] VITALS: O2SAT 97
--- NOTE | 2019-02-01 10:15 | W.PM.PROGNOT ---
Date of Service Date of service: 02/01/19 Time of Service: 10:16 Assessment and Plan (1) Status post total right knee replacement: Current visit: Yes Status: Acute Assessment: I see no reason why she can go home today. She only has 1 step to go up at home. She is transferring independently. She is only taking p.o. pain meds. She has no symptoms of anemia. Plan: Discharge home at noontime. Home health PT follow-up. Follow-up in my office in 2 weeks Subjective Interval history since last seen: Karen feels very good. She is anxious to go home today. She is only taking p.o. pain meds. Her pain is well controlled. The bleeding from her incision is slowed down. She denies any nausea. Is not dizzy with standing up or moving around. Exam Narrative Exam Narrative: I remove her dressings today. She has some bleeding from the lower 3 inches of her incision but is not active bleeding. The incision looks great. There is no erythema at the wound margins. There is really only a very small amount of swelling. There is no significant swelling of her right ankle and foot. She is sitting in the chair today. She was able to get out of bed to go to the chair by herself without help. PT is going to take her on the stairs today. I apply a dressing to the incision today that is sealed so she wanted to change it at home. Objective Objective Clinical Data: Abnormal lab results 01/31/19 Range/Units 12:30 Hgb 7.7 L (12.0-15.5) g/dL Hct 24.9 L (36.0-46.0) % Vital Signs Temperature 36.5 C 02/01/19 08:30 Temperature Source Tympanic 02/01/19 08:30 Pulse 70 02/01/19 08:30 Pulse Rhythm Regular 02/01/19 10:00 Respiratory Rate 20 02/01/19 08:30 Respiratory Effort 02/01/19 10:00 Respiratory Depth Normal 02/01/19 10:00 Respiratory Pattern Normal 02/01/19 10:00 Blood Pressure 127/77 02/01/19 08:30 Pulse Oximetry 97 02/01/19 09:53 Respiratory End-tidal CO2 34 01/28/19 11:35 Oxygen Delivery Method Room Air 02/01/19 09:53 Oxygen Flow Rate 0 02/01/19 09:53 Pain Level 3 02/01/19 09:54 Comment 02/01/19 03:55 Intake & Output 01/31/19 01/31/19 02/01/19 11:59 23:59 11:59 Intake Total 350 / 590 240 / 590 540 / 540 Output Total 350 / 800 450 / 800 775 / 775 Balance 0 / -210 -210 / -210 -235 / -235 Intake: Oral 350 / 590 240 / 590 540 / 540 Output: Urine 350 / 800 450 / 800 775 / 775 Other: Urine Color Yellow Straw Yellow Urine Appearance Cloudy Clear Sediment Urine Odor Strong None None Emesis Description None Voiding Methods Bedside Commode Bedside Commode Bedside Commode Laboratory Results WBC 12.20 k/cumm (4.4-10.8) H D 01/30/19 06:50 RBC 2.77 m/cumm (4.00-5.20) L 01/30/19 06:50 Hgb 7.7 g/dL (12.0-15.5) L 01/31/19 12:30 Hct 24.9 % (36.0-46.0) L 01/31/19 12:30 MCV 87.4 fL (80-95) 01/30/19 06:50 MCH 26.7 pg (27.0-33.0) L 01/30/19 06:50 MCHC 30.6 g/dL (32.0-36.0) L 01/30/19 06:50 RDW 14.4 % (11.7-14.6) 01/30/19 06:50 Plt Count 232 x1000/uL (130-400) 01/30/19 06:50 MPV 10.5 fL (8.0-11.0) 01/30/19 06:50 Patient ABO/Rh Cancelled 01/28/19 06:55 Antibody Screen Cancelled 01/28/19 06:55
--- NOTE | 2019-02-01 10:22 | PDOC.HHF2F ---
1. Encounter Date and Reason I certify that ALEX FITZGERALD was seen by Jus Boyle MD on 02/01/19 and that I had a [id number] encounter with this patient that meets the physician face to face encounter requirements. 2. Clinical Findings Supporting Skilled Need and Homebound Status I certify that home health services are medically necessary, include either intermittent intermediate and/or physical/speech therapy, and that this patient is homebound in that absences from the home require considerable and taxing effort and are infrequent or of short duration, or are attributable to the need to receive medical care. [X] (a) Attached documentation from encounter provides clinical findings supporting skilled need and homebound status (including what assistance patient requires to leave the home). The encounter with the patient was in whole, or in part, for the following medical condition, which is the primary reason for home health care: OA (R) KNEE Alf: Physical Therapy: Due to R total knee replacement and BMI of 52, she is homebound. Can't drive and has no transport to outpatient physical therapy. Speech Therapy: Homebound: 3. Certification and Authentication I certify that I composed the above information based on my clinical judgement relating to this patient's medical condition and, if applicable, clinical findings communicated to me by the NPP or inpatient physician who performed the Home Health Referral. All further orders will be obtained through (Community Based Physician - PCP)
--- NOTE | 2019-02-01 10:28 | DSE_ITS ---
Date of service: 02/01/19 Time of Service: 10:25 DS: Diagnosis Discharge Diagnosis (1) Status post total right knee replacement: Status: Acute Discharge Plan Disposition Patient Disposition: HOME W/HOME HEALTH SERVICE Condition: Good Discharge Details Reason For Visit: OA (R) KNEE, R total knee replacement Admit Date/Time: 01/28/19 05:56 Admit Provider: Jus Boyle Attending Provider: Jus Boyle Primary Care Provider: Karolina Garcia [facility] Course Hospital Course: Karen taken to the operating room on the day of admission 01/28/2019 where she went underwent a right total knee replacement without complications. Postoperatively she was mobilize per protocol with physical therapy. She experienced a problem with surgical anemia but her hemoglobin stabilized at 7.7 g. She did not have any further symptoms of anemia. She did not require transfusion. She experienced postop nausea that was fairly severe. This was controlled with a scopolamine patch. She was troubled by some bleeding from the lower end of her incision. This was treated with p.o. tranexamic acid, dressing changes and observation. The bleedi ng resolved by discharge on 02/01/2019. Her mobilization was slightly slower than the usual because of her obesity. However, she was able to transfer independently by time of discharge on 02/01/2019. I thought she achieved all her acute care goals by 02/01/2019. She is therefore discharged home with home health PT referral. Home Meds and New Rx's Prescriptions: New hydrocodone-acetaminophen 5-325 mg tablet 1 tab PO Q4H PRN (Reason: pain) Qty: 30 RF: 0 No Action Shingrix Adjuvant Component-PF suspension 1 ml IM ONCE Qty: 0.5 RF: 1 multivitamin 1 EACH tablet 1 ea PO DAILY RF: 0 calcium carbonate-vitamin D3 1 EACH tablet 1 ea PO DAILY PRNRF: 0 aspirin 81 MG tablet,delayed release (DR/EC) 81 mg PO HS RF: 0 ibuprofen 200 MG tablet 800 mg PO PRN RF: 0 magnesium oxide 250 MG tablet 250 mg PO DAILY PRNRF: 0 citalopram [Celexa] 10 MG tablet 10 mg PO DAILY Qty: 90 RF: 4 metoprolol succinate 100 MG tablet extended release 24 hr 100 mg PO DAILY Qty: 90 RF: 11 losartan-hydrochlorothiazide 1 EACH tablet 1 tab-cap PO DAILY Qty: 90 RF: 4 Varicella-Zoster Ge/As01b/Pf [Shingrix Vial Kit] 50 MCG INJ 50 mcg IM ONCE Qty: 1 RF: 0 atorvastatin 40 mg tablet 40 mg PO QPM Qty: 90 RF: 4 Discharge Instructions Additional Instructions: Walk every day as much as discomfort allows. Elevate right leg when sitting. Apply a Cryo/Cuff to the right knee 4 times a day for an hour each time to decrease pain and swelling. May shower and get incision wet. Use walker to ambulate. Home health physical therapy referral made. Take ibuprofen for mild pain. Take hydrocodone as prescribed, for breakthrough pain. For the next 30 days, take 1 baby aspirin(81mg) twice a day, to prevent blood clots in the legs. After 3 days go back to taking 1 a day. Follow-up with Dr. Boyle in 2 weeks. Care Plan Goals: Independent ambulation and ADLs. Stand Alone Forms: Nursing Discharge Form Referrals: Jus Boyle MD [ [facility] ST[facility]FF [facility]YSICIAN] - (f/u in 2 weeks.) Activity:: Activity as Tolerated Equipment/Supplies:: Walker Diet:: As Tolerated Discharge Orders Discharge Orders: Discharge Order (Routine); Ordered 02/01/19 Ordered By: Jus Boyle DS: Data Vitals/I&O Vitals and I&O: Vital Signs Temperature 36.5 C 02/01/19 08:30 Temperature Source Tympanic 02/01/19 08:30 Pulse 70 02/01/19 08:30 Pulse Rhythm Regular 02/01/19 10:00 Respiratory Rate 20 02/01/19 08:30 Respiratory Effort 02/01/19 10:00 Respiratory Depth Normal 02/01/19 10:00 Respiratory Pattern Normal 02/01/19 10:00 Blood Pressure 127/77 02/01/19 08:30 Pulse Oximetry 97 02/01/19 09:53 Respiratory End-tidal CO2 34 01/28/19 11:35 Oxygen Delivery Method Room Air 02/01/19 09:53 Oxygen Flow Rate 0 02/01/19 09:53 Pain Level 3 02/01/19 09:54 Comment 02/01/19 03:55 Intake & Output 01/31/19 01/31/19 02/01/19 11:59 23:59 11:59 Intake Total 350 / 590 240 / 590 540 / 540 Output Total 350 / 800 450 / 800 775 / 775 Balance 0 / -210 -210 / -210 -235 / -235 Intake: Oral 350 / 590 240 / 590 540 / 540 Output: Urine 350 / 800 450 / 800 775 / 775 Other: Urine Color Yellow Straw Yellow Urine Appearance Cloudy Clear Sediment Urine Odor Strong None None Emesis Description None Voiding Methods Bedside Commode Bedside Commode Bedside Commode Labs on day of discharge: Labs from last 24 hours 01/31/19 12:30 Hgb 7.7 L Hct 24.9 L PFSH Medical History Shingles (Resolved 10/16/17) Polyp of colon (Chronic) Panic attack (Resolved) Knee pain (Chronic) Increased body mass index (Chronic) Hyperlipidemia (Chronic) Essential hypertension (Chronic) Disorder characterized by back pain (Chronic) Depressive disorder (Chronic) Cervical spondylosis (Chronic 09/19/12) Cataract (Resolved 12/16/14) Surgical History Colonoscopy - MAC Extraction of cataract (01/15/15) KNEE REPAIR Replacement of total knee joint (12/17/12) Tonsillectomy Family History Mother COPD (chronic obstructive pulmonary disease) Tobacco use Father Alcohol abuse Sister No problems noted. Brother No problems noted. Son No problems noted. Daughter No problems noted. Maternal Grandfather Depression Heart disease Maternal Grandmother Heart disease Social History Smoking/Tobacco Use Status: Former Tobacco Use Alcohol Intake: former Drug use: Never Pets and animals: Yes Pets and animals: cat(s) Duration: 15-30 minutes/day Frequency: 1-2 times per week Altagracia/Sabianist: Other Special altagracia needs: No Do you feel safe in your relationship?: Yes
--- NOTE | 2019-02-01 10:46 | PDOC.CMDIS ---
- If Service Date Differs Date of service: 02/01/19 Time of Service: 10:46 LACE Index Scoring Tool - Questions: Length of Stay (in days): 4 - 6 Acuity (Admit via E.D.?): No E.D. Visits: 0 - Answers: Total Score: 4 Risk of Readmission: Low Risk Care Management Discharge Reason for Hospitalization: OA (R) Knee Discharge Plan: Nichelle will return home with home health PT services ([facility] notified). She will F/U with Dr. Boyle and plan of care as prescribed. Nichelle's will transport her home. Patient/Family Education Needs: Review DC instructions, any limitations, and discuss 'Ask Me Three' Services Needed at Discharge: Home Health Care Services (PT)
--- NOTE | 2019-02-01 10:48 | PT.INTREAT ---
Date of service: 02/01/19 Time of Service: 10:48 PT Notes Inpatient Physical Therapy Treatment Note [facility] Date: 02/01/19 PRECAUTIONS: WBAT R, fall SUBJECTIVE: Nichelle states that she is feeling significantly better today, she reports that she was able to perform bed mobility and transfers independently this morning without nursing assist. She is hopeful that she will be able to return home today. OBJECTIVE: PAIN: Patient complained of right lower extremity pain with ther ex BED MOBILITY/TRANSFERS Supine-sit: I with HOB flat Sit-supine: I with HOB flat Sit-stand: SBA Stand-sit: SBA GAIT Assistive Device: FWW Weight bearing: WBAT on R Assist: SBA Distance: 50' THEREX: Patient completed a LE strengthening program, as per flow sheet. Patient continues to require assist with SLR. STAIRS: Up/down 2x6 using B rails and a step to pattern with SBA ASSESSMENT: Patient was able to tolerate a progression in gait distance with FWW support and SBA. She was able to tolerate stair training with SBA and minimal cueing for technique. Patient would benefit from continued gait and transfer training as well as strengthening for improved mobility and activity tolerance. PLAN: Continue with PT's POC TREATMENT CODE/TIME: 40 minutes; 74754 x2, [id number]
--- NOTE | 2019-02-01 10:50 | CMDISCH_ITS ---
- If Service Date Differs Date of service: 02/01/19 Time of Service: 10:46 LACE Index Scoring Tool - Questions: Length of Stay (in days): 4 - 6 Acuity (Admit via E.D.?): No E.D. Visits: 0 - Answers: Total Score: 4 Risk of Readmission: Low Risk Care Management Discharge Reason for Hospitalization: OA (R) Knee Discharge Plan: Nichelle will return home with home health PT services ([facility] notified). She will F/U with Dr. Boyle and plan of care as prescribed. Nichelle's will transport her home. Patient/Family Education Needs: Review DC instructions, any limitations, and discuss 'Ask Me Three' Services Needed at Discharge: Home Health Care Services (PT)
--- NOTE | 2019-02-01 10:52 | PTTR_ITS ---
Date of service: 02/01/19 Time of Service: 10:48 PT Notes Inpatient Physical Therapy Treatment Note [facility] Date: 02/01/19 PRECAUTIONS: WBAT R, fall SUBJECTIVE: Nichelle states that she is feeling significantly better today, she r eports that she was able to perform bed mobility and transfers independently this morning without nursing assist. She is hopeful that she will be able to return home today. OBJECTIVE: PAIN: Patient complained of right lower extremity pain with ther ex BED MOBILITY/TRANSFERS Supine-sit: I with HOB flat Sit-supine: I with HOB flat Sit-stand: SBA Stand-sit: SBA GAIT Assistive Device: FWW Weight bearing: WBAT on R Assist: SBA Distance: 50' THEREX: Patient completed a LE strengthening program, as per flow sheet. Patient continues to require assist with SLR. STAIRS: Up/down 2x6 using B rails and a step to pattern with SBA ASSESSMENT: Patient was able to tolerate a progression in gait distance with FWW support and SBA. She was able to tolerate stair training with SBA and minimal cueing for technique. Patient would benefit from continued gait and transfer training as well as strengthening for improved mobility and activity tolerance. PLAN: Continue with PT's POC TREATMENT CODE/TIME: 40 minutes; 74386 x2, 11470
--- NOTE | 2019-02-04 10:38 | INDS_ITS ---
Date of service: 02/04/19 PT Notes Inpatient Physical Therapy Discharge Summary Dates: 02/04/2019 Dates of Service: 01/28/19 through 02/01/19 Referring Doctor: Jus Boyle MD PT Orders: PT CONSULT: Mobilize postop right total knee. Get OOB ambulating in room this afternoon Precautions: Fall. Standard. Patient Profile/Admitting Diagnosis: Patient is a 68-year-old female status post right total knee arthroplasty due to persistent right knee pain from unilateral primary osteoarthritis. PMHX: Shingles (Resolved 10/16/17) Polyp of colon (Chronic) Panic attack (Resolved) Knee pain (Chronic) Increased body mass index (Chronic) Hyperlipidemia (Chronic) Essential hypertension (Chronic) Disorder characterized by back pain (Chronic) Depressive disorder (Chronic) Cervical spondylosis (Chronic 09/19/12) Cataract (Resolved 12/16/14) Surgical History: Colonoscopy - MAC Extraction of cataract (01/15/15) KNEE REPAIR Replacement of total knee joint (12/17/12) Tonsillectomy Social History/Home Situation: Patient lives with and daughter in a 1 floor house with 10-12 steps going down to basement, railing on both sides. Patient states she has 3 entrances to the house with the first and entrance having one big step from garage to the house as the most accessible. Second and third entrance are not accessible due to presence of snow. and daughter provides assistance with laundry and do with mobility performance ensure safety. Patient further reports that she has everything she needs on the main floor of the house. Prior to admission and 1-2 months before pain from arthritis started to limit patient, she only needed supervision for transfers and ambulation she could do some minor meal preparation and cooking but could no longer perform vacuuming and nor could she do laundry. Daughter works during the day and her is home until 1:30 PM at which time he goes to work and goes back around 10 PM. Equipment Owned/DME: Patient has a front wheeled walker, a commode which she uses for nighttime toileting, and a shower seat. Subjective: Per PT documentation on 02/01/19, patient reports that she has significantly improved she patient stated that she did bed mobility and transfers independently. Documentation also says that patient is hopeful that she can go home. Objective: General Observation: Patient lying down in bed HOB elevated about 30 degrees. IV in the right UE. Tenorio catheter on. Mental Status: Alert and oriented x3 Pain: Per PT documentation on 02/01/19 patient reported pain on right LE after performing therapeutic exercise. ROM: Right Upper Extremity: WFL Left Upper Extremity: WFL Right Lower Extremity: Hip flexion 0-90. Knee flexion 0-90. Left Lower Extremity: WFL Strength: Right Upper Extremity: WFL Left Upper Extremity: WFL Right Lower Extremity: Hip flexors 3-/5. Knee flexors extensors 3-/5. Ankle dorsiflexors/plantar flexors 4/5. Left Lower Extremity: Hip flexors 3-/5. Knee flexors 3-/5. Knee extensors 3+/5. Dorsiflexors plantar flexors 4/5. Sensation: Intact on left LE as to pain and pressure. Bed Mobility/Transfers: Rolling: Max assist Supine to sit with HOB 45 degrees: Independent Sit to supine: Independent Sit to stand: SBA Stand to sit: SBA Bed to chair:SBA Chair to bed: SBA Gait: Per PT documentation in the morning of 02/01/2019 patient was able to talk surface ambulation using front car weightbearing as tolerated on the right with standby assist provided. Patient was also able to tolerate up and down steps twice on the 6 inch steps using step to pattern holding onto both rails with SBA given. Balance: Static Sitting: Good Dynamic Sitting: Good Static Standing: Fair Dynamic Standing: Special Tests: Mobility Limitations Standardized Measure [facility] AM-PAC 6 clicks Basic Mobility Inpatient Short Form: Raw Score: 18 CMS Score: 47% deficit Assessment: Patient is a 68 year old female patient referred to physical therapy services with the diagnosis of status post total knee arthroplasty due to unilateral primary osteoarthritis. Patient presents with clinical signs and symptoms consistent with decreased mobility performance related to post- operative status, as demonstrated by the following impairment level findings: 1. Impaired hip and knee range of motion on the right and left side due to pain and weakness 2. Impaired strength on the right LE 3. Absent static and dynamic standing balance 4. Impaired activity tolerance 5. Impaired static dynamic sitting balance Impairments are contributing to the following functional limitations: 1. Decreased bed mobility skills 2. Inability to perform transfer tasks 3. Inability to perform level surface ambulation 4. Increased completion time for bed mobility tasks 5. Increased fall risk Goals: Goals X1 week 1. Supine-Sit independent MET 2. Sit-Supine independent MET 3. Sit-Stand independent with FWW MET 4. Stand-Sit dependent with FWW NOT MET 5. Bed-Chair independent with FWW NOT MET 6. Chair-Bed independent with FWW NOT MET 7. Gait independent with FWW on level surfaces for at least 200 feet SBA NOT MET 8. Stairs independent while holding onto bilateral rails using step through pattern NOT MET 9. Independent with home exercise program NOT MET 10. Balance good NOT MET DISCHARGE RECOMMENDATIONS: To home with and daughter using FWW. May benefit from short-term home health PT services in order to address potential remaining impairments, evaluate home safety, and reduce fall risk. TREATMENT CODE/TIME: N/A You very much for your referral. Althea Araujo, Pt, DPT, CLT [facility]
== END 2019-02-01 12:14 | disposition home health service (06) | DRG 470 ==
LOC: PDS 09:32 → MS 11:23
PROVIDERS: Admitting Provider Orthopaedic Surgery; PCP Family Medicine; Visit Provider Orthopaedic Surgery
PROC: 0SRC0J9 Replacement of Right Knee Joint with Synthetic Substitute, Cemented, Open Approach (ICD-10-PCS; CPT 27447; principal; 2019-01-28 07:30)
DX: M17.11 Unilateral primary osteoarthritis, right knee (principal); D62 Acute posthemorrhagic anemia; K91.89 Other postprocedural complications and disorders of digestive system; M96.830 Postprocedural hemorrhage of a musculoskeletal structure following a musculoskeletal system procedure; Z68.43 Body mass index [BMI] 50.0-59.9, adult; Z96.651 Presence of right artificial knee joint; Y83.1 Surgical operation with implant of artificial internal device as the cause of abnormal reaction of the patient, or of later complication, without mention of misadventure at the time of the procedure; R11.0 Nausea; E66.01 Morbid (severe) obesity due to excess calories; I10 Essential (primary) hypertension; F32.9 Major depressive disorder, single episode, unspecified
CPT/HCPCS: 27447; 64447; 36415; 76942; 85027; 86850; 86900; 86901; 97110; 97162; 97530; J1650; NC; 73560; 85014; 85018; J0690; J1100; J1885; J2250; J2405; L1830

== ENCOUNTER → 2019-02-21 10:48 | Outpatient (BNVA) | payer MEDICARE, OTHER, SELFPAY | PROVIDERS: PCP Family Medicine; Referring Provider Family Medicine; Visit Provider Orthopaedic Surgery | DX: Z96.651 Presence of right artificial knee joint (principal); Z47.1 Aftercare following joint replacement surgery ==

== ENCOUNTER → 2019-03-21 10:26 | Outpatient (BNVA) | payer MEDICARE, OTHER, SELFPAY | PROVIDERS: PCP Family Medicine; Referring Provider Family Medicine; Visit Provider Orthopaedic Surgery | DX: Z47.1 Aftercare following joint replacement surgery (principal); Z96.651 Presence of right artificial knee joint ==

== ENCOUNTER → 2019-05-02 10:25 | Outpatient (BNVA) | payer MEDICARE, OTHER, SELFPAY | PROVIDERS: PCP Family Medicine; Referring Provider Family Medicine; Visit Provider Orthopaedic Surgery | DX: Z47.1 Aftercare following joint replacement surgery (principal); Z96.651 Presence of right artificial knee joint | CPT/HCPCS: 99213 ==

== ENCOUNTER → 2019-08-23 08:45 | Outpatient (BNVA) | payer MEDICARE, OTHER, SELFPAY | PROVIDERS: PCP Family Medicine; Referring Provider Family Medicine; Visit Provider Physical Therapy Assistant | DX: Z12.11 Encounter for screening for malignant neoplasm of colon (principal); Z86.010 Personal history of colon polyps; I10 Essential (primary) hypertension ==

== ENCOUNTER 2019-09-06 09:07 | Day surgery (SDC) | payer MEDICARE, OTHER, SELFPAY ==
[2019-09-06] MEDS: Lactated Ringers 1,000 ML 80 ML IV (10:00)
--- NOTE | 2019-09-06 10:16 | W.PM.DSUDISC ---
Discharge Plan Disposition Patient Disposition: HOME Condition: Good Discharge Details Reason For Visit: Colonoscopy Attending Provider: Rachel Morgan Primary Care Provider: Karolina Garcia Home Meds and New Rx's Prescriptions: Continued Shingrix Adjuvant Component-PF suspension 1 ml IM ONCE Qty: 0.5 RF: 1 albuterol sulfate 90 mcg/actuation HFA aerosol inhaler 2 puff IH QID Qty: 18 RF: 4 aspirin 81 MG tablet,delayed release (DR/EC) 81 mg PO HS RF: 0 ibuprofen 200 MG tablet 800 mg PO PRN RF: 0 atorvastatin 40 mg tablet 40 mg PO QPM Qty: 90 RF: 4 citalopram [Celexa] 10 mg tablet 10 mg PO DAILY Qty: 90 RF: 4 losartan-hydrochlorothiazide 100-25 mg tablet 1 tab PO DAILY Qty: 90 RF: 4 metoprolol succinate 100 mg tablet extended release 24 hr 100 mg PO DAILY Qty: 90 RF: 11 Discontinued polyethylene glycol 3350 17 gram/dose powder 238 g PO ONCE Qty: 238 RF: 0 bisacodyl [Dulcolax (bisacodyl)] 5 mg tablet,delayed release (DR/EC) 5 mg PO ONCE Qty: 4 RF: 0 Discharge Instructions Additional Instructions: Findings: One small polyp was removed. My office will contact you with biopsy results. Follow up: You may need a colonoscopy in 5 years if the polyp is adenomatous. Please call if you develop: fevers >101.5 Nausea or Vomiting Abdominal pain that is not transient DAY SURGERY UNIT POST COLONOSCOPY INSTRUCTIONS 1. Because there will be medication in your system for the next 24 hours, you may feel a little sleepy. Your coordination will be affected. Therefore: a. Do not drive or operate dangerous equipment for 24 hours. b. Do not drink alcohol beverages for 24 hours (not even beer). c. Plan to go home and rest for the day. 2. Generally there are no restrictions on your activity after a day or so has gone by, but you may feel a bit fatigued for a few days. 3 After you arrive home you may have a light meal and return to a normal diet as you can tolerate it without feeling sick to your stomach. 4. After surgery, you may feel pain or discomfort. This should be only transient, but if it persists please contact your doctor. 5. If there are any questions regarding the findings of your procedure, please feel free to contact your doctor. 6. If you are unable to contact your doctor with a problem, contact the hospital at [phone]. 7. Continue all your regular medications unless directed otherwise. I understand the above instructions and have no questions. Signature of Patient or Responsible Adult Escort Date/Time Name of Responsible Adult Escort Signature of Nurse Date/Time Activity:: Activity as Tolerated Diet:: As Tolerated Discharge Orders Discharge Orders: Discharge Order (Routine); Ordered 09/06/19 Ordered By: Rachel Morgan DS: Diagnosis Discharge Diagnosis (1) Polyp of colon: Status: Chronic
--- NOTE | 2019-09-06 10:45 | BOWEL_PTH ---
PATIENT: Nichelle Vasquez LOC: [facility] U#:[id number] AGE/SX: 69/F ROOM: RE09/06/[address]: Rachel Morgan MD : [id number] BED: DIS: 09/06/2019 SPEC #: [id number] RECD: 09/06/19 12:28 STATUS: RONIT REQ #: [id number] PAOLA: 09/06/19 10:[address]: Rachel Morgan DEPT: Surgical Specimen RECD BY: Radha Weeks ENTERED: 09/06/19 12:28 SP TYPE: Bowel OTHR DR: Karolina Garcia MD, DC Tissues: 1 - BIOPSY BOWEL Procedures: GROSS AND MICRO LEVEL 4 Comments: [id number]
[2019-09-06 11:28] VITALS: BP 133/69; PULSE 64; RESP 16; TEMP 36.3; O2SAT 99
[2019-09-06 12:00] VITALS: BP 139/69; PULSE 65; RESP 18; TEMP 36.3; O2SAT 97
--- NOTE | 2019-09-06 12:08 | COLE_ITS ---
DATE OF PROCEDURE: September 06, 2019 PREOPERATIVE DIAGNOSIS: Colon polyps. POSTOPERATIVE DIAGNOSIS: Colon polyp. PROCEDURE: Colonoscopy with snare polypectomy. SURGEON: Rachel Morgan M.D. ANESTHESIA: General. INDICATIONS: This is a 69-year-old woman whose last colonoscopy showed hyperplastic polyps. This wa s in 2011. She has no family history of colon cancer and denies symptoms. PROCEDURE: She was placed in the left Adame position. Propofol was titrated to sedation. Digital re ctal examination revealed no abnormalities. The scope was advanced to the cecum without difficulty. The ileocecal valve and appendiceal orifice were clearly identified. Her prep was excellent. The s cope was slowly withdrawn with no abnormalities seen within the ascending, transverse, or descending colon. In the sigmoid region at 25 cm there was a < 1 cm polyp that was removed with snare polypecto my and retrieved for pathology. The rectum was normal, including on retroflex view. She tolerated t he procedure well and was stable to recovery. If the polyp is adenomatous, she will need a colonosco py in five years, otherwise could plan for a potential ten year follow-up if the polyp is hyperplasti c, given that her prior polyps were hyperplastic as well. cc: Karolina Garcia M.D.
== END 2019-09-06 12:20 | disposition home or self-care (01) ==
PROVIDERS: PCP Family Medicine; Visit Provider Surgery
PROC: 0DJD8ZZ Inspection of Lower Intestinal Tract, Via Natural or Artificial Opening Endoscopic (ICD-10-PCS; CPT 45378; principal; 2019-09-06 09:45)
DX: Z12.11 Encounter for screening for malignant neoplasm of colon (principal); D12.5 Benign neoplasm of sigmoid colon; Z87.19 Personal history of other diseases of the digestive system
CPT/HCPCS: 45385; 88305

== ENCOUNTER 2019-09-26 11:29 | Outpatient (CLI) | payer MEDICARE, OTHER, SELFPAY ==
[2019-09-26 13:08] LABS: ALT 17 U/L (14-59); AST 24 U/L (15-37); Albumin 3.7 g/dL (3.4-5.0); Alkaline Phosphatase 124 U/L (46-116); Anion Gap 9.2 mmol/L (3-11); BUN 27 mg/dL (7-18); Bilirubin, Total 0.4 mg/dL (0.2-1.0); CO2 28.8 mmol/L (21.0-32.0); CREATININE 1.18 mg/dL (0.55-1.02); Calcium 9.5 mg/dL (8.5-10.1); Calculated LDL 79 mg/dL; Chloride 105 mmol/L (98-107); Cholesterol 152 mg/dL (50-200); Estimated GFR 45.15 (mL/min/1.73m2); Glucose 98 mg/dL (70-100); HDL Cholesterol 57 mg/dL (40-60); Potassium 4.6 mmol/L (3.5-5.1); Sodium 143 mmol/L (136-145); Total Protein 7.1 g/dL (6.4-8.2); Triglyceride 83 mg/dL (30-150)
[2019-09-27 12:37] LABS: Hepatitis C Ab w Rflx HCV PCR Negative (NEGAT)
== END 2019-09-26 11:49 ==
PROVIDERS: PCP Family Medicine; Visit Provider Family Medicine
DX: R73.09 Other abnormal glucose (principal); I10 Essential (primary) hypertension; E78.5 Hyperlipidemia, unspecified; Z11.59 Encounter for screening for other viral diseases
CPT/HCPCS: 36415; 80053; 80061; 86803; 83036

== ENCOUNTER 2020-04-29 01:01 | Outpatient (CLI) | payer MEDICARE, SELFPAY ==
--- NOTE | 2020-04-29 11:52 | DI.MAMMO_ITS ---
EXAM: MG MAMMO SCREENING CLINICAL HISTORY: screening,Z12.39 TECHNIQUE: Bilateral full field digital CC and MLO mammographic images were obtained with 3D tomosyn thesis and utilizing computer aided detection (CAD). COMPARISON: Available for comparison. FINDINGS: Masses/Architectural Distortion: None seen. Microcalcifications: No suspicious pleomorphic-type are seen. Skin Thickening/Nipple Retraction: None. IMPRESSION: 1. No significant interval change with no specific features of malignancy noted. 2. Unless there is more urgent need, screening mammography is recommended, as per [place] [employer] guidelines. BI-RADS Category 1 - Negative Breast Density - Category A - Almost entirely fatty A negative radiographic report should not delay biopsy if a dominant or clinically suspicious mass is present. Up to ten percent of cancers are not identified on mammography. A negative report may reinforce clinical impression. Adenosis and dense breasts may obscure an underlying neoplasm. False positive reports average 6 to 10%. Patient will receive a letter notifying them of these results.
== END 2020-04-29 01:21 ==
PROVIDERS: PCP Family Medicine; Visit Provider Family Medicine
DX: Z12.31 Encounter for screening mammogram for malignant neoplasm of breast (principal)
CPT/HCPCS: 77063; 77067

== ENCOUNTER 2021-04-06 19:05 | Outpatient (REF) | payer MEDICARE, SELFPAY ==
[2021-04-06 13:23] LABS: Hemoglobin A1C 5.7 % (<5.7)
[2021-04-06 13:35] LABS: ALT 24 U/L (14-59); AST 16 U/L (15-37); Albumin 3.6 g/dL (3.4-5.0); Alkaline Phosphatase 126 U/L (46-116); Anion Gap 9.8 mmol/L (3-11); BUN 21 mg/dL (7-18); Bilirubin, Total 0.5 mg/dL (0.2-1.0); CO2 28.2 mmol/L (21.0-32.0); CREATININE 1.2 mg/dL (0.55-1.02); Calcium 8.8 mg/dL (8.5-10.1); Calculated LDL 83 mg/dL (<100); Chloride 103 mmol/L (98-107); Cholesterol 156 mg/dL (<200); Estimated GFR 44.04 (mL/min/1.73m2); Glucose 108 mg/dL (74-106); HDL Cholesterol 52 mg/dL (40-60); Potassium 4.4 mmol/L (3.5-5.1); Sodium 141 mmol/L (136-145); TSH (W/Ref FT4) 3.13 uIU/mL (0.36-3.74); Triglyceride 108 mg/dL (<150)
== END 2021-04-06 19:06 | disposition home or self-care (01) ==
LOC: LBN 19:05
PROVIDERS: PCP Family Medicine; Visit Provider Family Medicine
DX: E78.5 Hyperlipidemia, unspecified (principal); I10 Essential (primary) hypertension; E11.9 Type 2 diabetes mellitus without complications; F32.9 Major depressive disorder, single episode, unspecified
CPT/HCPCS: 80053; 80061; 83036; 84443

== ENCOUNTER 2021-12-04 11:34 | Outpatient (CLI) | payer MEDICARE, SELFPAY ==
--- NOTE | 2021-12-04 11:57 | DI.RAD_ITS ---
Exam(s) XR TOE LT GREAT EXAM: XR TOE LT GREAT CLINICAL HISTORY: GREAT TOE PAIN,. TECHNIQUE: 2D digital imaging was performed. COMPARISON: CR LEFT FOOT COMPLETE from 03/07/2014 FINDINGS: There is a 5 x 4 millimeter osteophytic density with adjacent defect in the parent bone off the plant ar proximal surface of the distal phalanx of the great toe. No other fractures identified although t here are advanced degenerative changes in the great toe metatarsophalangeal joint as well as hallux v algus. IMPRESSION: There is an avulsion fracture of the plantar base of the distal phalanx of the great toe. Other findings as above. DATA REPOSITORY: RADIATION DOSE DELIVERED:
--- NOTE | 2021-12-04 12:07 | DI.VRAD_ITS ---
PROCEDURE INFORMATION: Exam: XR Left Toe(s) Exam date and time: 12/04/2021 11:44 AM Age: 71 years old Clinical indication: Injury or trauma; Other: Tripped, toe hit pellet stove; Blunt trauma; Toes; Left; Injury details: Toe vs. Pellet stove xfew weeks ago, intermittent pain/swelling x 1year. FX vs. Bunion vs. Osteoarthritis. TECHNIQUE: Imaging protocol: XR Left toes. Views: Minimum 2 views. COMPARISON: No relevant prior studies available. FINDINGS: Bones/joints: 5 mm ossicle along the plantar aspect of the interphalangeal joint of the great toe with a corresponding cortical defect at the distal phalanx base compatible with an avulsion fracture. Severe degenerative changes at the 1st metatarsophalangeal joint with mild lateral subluxation of the proximal phalanx and mild hallux valgus angulation. Mild degenerative changes at other joints. Soft tissues: No focal soft tissue swelling. IMPRESSION: 1. Avulsion fracture from the base of the distal phalanx of the great toe. 2. Degenerative changes. Dictated and Authenticated by: Jcarlos Forman MD. Ordering:ANH Curtis MD
== END 2021-12-04 11:54 ==
PROVIDERS: PCP Family Medicine; Visit Provider Physician Assistant Medical
DX: M79.675 Pain in left toe(s) (principal); S92.422A Displaced fracture of distal phalanx of left great toe, initial encounter for closed fracture; W22.8XXA Striking against or struck by other objects, initial encounter
CPT/HCPCS: 73660

== ENCOUNTER 2021-12-20 19:34 | Outpatient (REF) | payer MEDICARE, SELFPAY ==
[2021-12-20 20:24] LABS: HCT 39.9 % (36.0-46.0); MCH 24.9 pg (27.0-33.0); MCHC 30.1 % (32.0-36.0); MPV 10.6 fL (8.0-11.0); Platelet Count 372 10^3/uL (130-400); RBC 4.81 10^6/uL (3.93-5.22); RDW 14.9 % (11.7-14.6); RDW-SD 45.1 fL; WBC 10.19 10^3/uL (4.4-10.8)
[2021-12-20 20:53] LABS: ALT 27 U/L (14-59); AST 18 U/L (15-37); Albumin 3.8 g/dL (3.4-5.0); Alkaline Phosphatase 135 U/L (46-116); Anion Gap 8.8 mmol/L (3-11); BUN 29 mg/dL (7-18); Bilirubin, Total 0.5 mg/dL (0.2-1.0); CO2 30.2 mmol/L (21.0-32.0); CREATININE 1.2 mg/dL (0.55-1.02); Calcium 8.8 mg/dL (8.5-10.1); Calculated LDL 80 mg/dL (<100); Chloride 99 mmol/L (98-107); Cholesterol 156 mg/dL (<200); Estimated GFR 44.04 (mL/min/1.73m2); Glucose 96 mg/dL (74-106); HDL Cholesterol 56 mg/dL (40-60); Potassium 4.2 mmol/L (3.5-5.1); Sodium 138 mmol/L (136-145); Total Protein 7.4 g/dL (6.4-8.2); Triglyceride 101 mg/dL (<150)
[2021-12-20 21:10] LABS: Uric Acid 7.7 mg/dL (2.6-6.0)
== END 2021-12-20 19:35 | disposition home or self-care (01) ==
LOC: LBN 19:34
PROVIDERS: PCP Family Medicine; Visit Provider Family Medicine
DX: E78.5 Hyperlipidemia, unspecified (principal); I10 Essential (primary) hypertension; Z68.43 Body mass index [BMI] 50.0-59.9, adult; E11.9 Type 2 diabetes mellitus without complications
CPT/HCPCS: 80053; 80061; 85027; 83036; 84550

== ENCOUNTER 2023-01-23 02:16 | Outpatient (CLI) | payer MEDICARE, SELFPAY ==
--- NOTE | 2023-01-23 07:15 | DI.MAMMO_ITS ---
Exam(s) MAMMO SCREENING EXAM: MAMMO SCREENING CLINICAL HISTORY: screening,z12.39 TECHNIQUE: Mammograms were interpreted according to the usual protocol including computer analysis w [employer] CAD system, tomosynthesis and C-view imaging. COMPARISON: 2014 through 2019 FINDINGS: The breasts are composed of mainly fatty density , Breast Density category A. CC and exaggerated lateral CC views were performed. The patient did not want to proceed with MLO vi ews. No suspicious masses or suspicious microcalcifications are seen. No skin thickening or abnormal axillary lymph nodes are seen. There has been no significant change from prior exams. IMPRESSION: BI-RADS Category 1, Negative mammogram Yearly screening mammography is recommended. Breast Density - Category A, fatty density. A negative radiographic report should not delay biopsy if a dominant or clinically suspicious mass is present. Up to ten percent of cancers are not identified on mammography. A negative report may reinforce clinical impression. Adenosis and dense breasts may obscure an underlying neoplasm. False positive reports average 6 to 10%. Patient will receive a letter notifying them of these results.
== END 2023-01-23 02:36 ==
PROVIDERS: PCP Family Medicine; Visit Provider Family Medicine
DX: Z12.31 Encounter for screening mammogram for malignant neoplasm of breast (principal)
CPT/HCPCS: 77063; 77067

== ENCOUNTER 2023-06-12 04:54 | Outpatient (CLI) | payer MEDICARE, SELFPAY ==
[2023-06-12 14:53] LABS: Hemoglobin A1C 5.7 % (<5.7)
[2023-06-12 15:20] LABS: ALT 18 U/L (14-59); AST 14 U/L (15-37); Albumin 3.4 g/dL (3.4-5.0); Alkaline Phosphatase 114 U/L (46-116); Anion Gap 7.1 mmol/L (3-11); BUN 26 mg/dL (7-18); Bilirubin, Total 0.3 mg/dL (0.2-1.0); CO2 31.9 mmol/L (21.0-32.0); CREATININE 1.1 mg/dL (0.55-1.02); Calcium 8.8 mg/dL (8.5-10.1); Calculated LDL 53 mg/dL (<100); Chloride 103 mmol/L (98-107); Cholesterol 152 mg/dL (<200); Glucose 114 mg/dL (74-106); HDL Cholesterol 56 mg/dL (40-60); Potassium 3.6 mmol/L (3.5-5.1); Sodium 142 mmol/L (136-145); Total Protein 7.1 g/dL (6.4-8.2); Triglyceride 216 mg/dL (<150)
== END 2023-06-12 04:55 | disposition home or self-care (01) ==
PROVIDERS: PCP Family Medicine; Visit Provider Family Medicine
DX: I10 Essential (primary) hypertension (principal); E11.9 Type 2 diabetes mellitus without complications; F32.9 Major depressive disorder, single episode, unspecified
CPT/HCPCS: 36415; 80053; 80061; 83036

== ENCOUNTER 2024-06-25 09:19 | Outpatient (CLI) | payer MEDICARE, SELFPAY ==
[2024-06-25 13:09] LABS: ALT 25 U/L (14-59); AST 22 U/L (15-37); Albumin 3.5 g/dL (3.4-5.0); Alkaline Phosphatase 99 U/L (46-116); Anion Gap 9.3 mmol/L (3-11); BUN 24 mg/dL (7-18); Bilirubin, Total 0.37 mg/dL (0.2-1.0); CO2 27.7 mmol/L (21.0-32.0); CREATININE 1.5 mg/dL (0.55-1.02); Calcium 8.9 mg/dL (8.5-10.1); Calculated LDL 67 mg/dL (<100); Chloride 103 mmol/L (98-107); Cholesterol 141 mg/dL (<200); Estimated GFR 35.89 (mL/min/1.73m2); Glucose 119 mg/dL (74-106); HDL Cholesterol 52 mg/dL (40-60); Potassium 3.7 mmol/L (3.5-5.1); Sodium 140 mmol/L (136-145); TSH (W/Ref FT4) 3.88 uIU/mL (0.36-3.74); Total Protein 7.2 g/dL (6.4-8.2); Triglyceride 110 mg/dL (<150)
[2024-06-25 13:27] LABS: FREE T4 0.74 ng/dL (0.76-1.46)
[2024-06-25 19:13] LABS: Hemoglobin A1C 5.9 % (<5.7)
== END 2024-06-25 09:20 | disposition home or self-care (01) ==
LOC: LOS 09:19
PROVIDERS: PCP Family Medicine; Referring Provider Family Medicine; Visit Provider Family Medicine
DX: E11.9 Type 2 diabetes mellitus without complications (principal); I10 Essential (primary) hypertension; E03.9 Hypothyroidism, unspecified; Z12.39 Encounter for other screening for malignant neoplasm of breast
CPT/HCPCS: 36415; 80053; 80061; 83036; 84439; 84443

== ENCOUNTER 2025-07-08 02:06 | Outpatient (CLI) | payer MEDICARE, SELFPAY ==
[2025-07-08 08:02] LABS: Hemoglobin A1C 5.7 % (<5.7)
[2025-07-08 08:36] LABS: ALT 16 U/L (14-59); AST 14 U/L (15-37); Albumin 3.5 g/dL (3.4-5.0); Alkaline Phosphatase 121 U/L (46-116); Anion Gap 10.6 mmol/L (3-11); BUN 20 mg/dL (7-18); Bilirubin, Total 0.4 mg/dL (0.2-1.0); CO2 26.4 mmol/L (21.0-32.0); Calcium 8.5 mg/dL (8.5-10.1); Calculated LDL 71 mg/dL (<100); Chloride 104 mmol/L (98-107); Cholesterol 142 mg/dL (<200); Estimated GFR 46.62 (mL/min/1.73m2); Glucose 123 mg/dL (74-106); HDL Cholesterol 48 mg/dL (>or=50); Potassium 4.0 mmol/L (3.5-5.1); Sodium 141 mmol/L (136-145); TSH (W/Ref FT4) 2.03 uIU/mL (0.36-3.74); Total Protein 7.3 g/dL (6.4-8.2); Triglyceride 117 mg/dL (<150); Vitamin B12 190 pg/mL (193-986); Vitamin D 25 Total 40 ng/mL (30-100)
== END 2025-07-08 02:07 | disposition home or self-care (01) ==
LOC: LBO 02:06
PROVIDERS: PCP Family Medicine; Visit Provider Family Medicine
DX: R73.9 Hyperglycemia, unspecified (principal); G62.9 Polyneuropathy, unspecified; E03.9 Hypothyroidism, unspecified; I10 Essential (primary) hypertension; R53.83 Other fatigue; M81.0 Age-related osteoporosis without current pathological fracture
CPT/HCPCS: 36415; 80053; 80061; 82306; 82607; 83036; 84443